=== PATIENT | male | born 2000 | race Caucasian/White ===

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

== ENCOUNTER 2019-06-07 22:00 | Emergency (ER) | payer OTHER ==
[~2019-06-07] VITALS: Ht 182.9 cm; Wt 86.4 kg
[2019-06-07 22:11] VITALS: BP 153/76; TEMP 97.7
[2019-06-07 23:59] VITALS: PULSE 80
== END 2019-06-07 23:59 | disposition home or self-care (01) ==
LOC: COL.ER 22:00
DX: R10.13 Epigastric pain (principal)